=== PATIENT | male | born 1995 | race African-American/Black ===

== ENCOUNTER 2019-04-14 18:58 | Emergency (ER) | payer OTHER ==
[~2019-04-14] VITALS: Ht 175.3 cm; Wt 63.5 kg
[2019-04-14] MEDS ORDERED: MELOXICAM15 MG PO (21:10)
[2019-04-14 21:27] VITALS: BP 122/64
== END 2019-04-14 21:27 | disposition home or self-care (01) ==
LOC: M.ERS 18:58
DX: S63.591A Other specified sprain of right wrist, initial encounter (principal); Z90.49 Acquired absence of other specified parts of digestive tract; X50.9XXA Other and unspecified overexertion or strenuous movements or postures, initial encounter; Y93.89 Activity, other specified; Y92.89 Other specified places as the place of occurrence of the external cause; Y99.8 Other external cause status